=== PATIENT | male | born 1995 | race African-American/Black ===

== ENCOUNTER 2021-10-23 14:01 | Emergency (ER) | payer SELFPAY ==
[~2021-10-23] VITALS: Ht 175.3 cm; Wt 72.1 kg
[2021-10-23 14:01] VITALS: BP 106/78
[~2021-10-23 14:01] MED LIST: AMOX-263 PO; IBUP800T27 PO
[2021-10-23] MEDS ORDERED: LIDOCAINE 1%HCL (LOCAL ANESTH) 10 ML MDV ONE (15:35)
[2021-10-23] MEDS ORDERED: TETANUS-DIPTH-ACEL PERTUSSIS 0.5ML SYR Tdap IM ONE (15:45)
== END 2021-10-23 16:16 | disposition home or self-care (01) ==
LOC: ER 14:01
DX: S71.111A Laceration without foreign body, right thigh, initial encounter (principal); F17.210 Nicotine dependence, cigarettes, uncomplicated; Z79.1 Long term (current) use of non-steroidal anti-inflammatories (NSAID); Z79.2 Long term (current) use of antibiotics; W26.8XXA Contact with other sharp object(s), not elsewhere classified, initial encounter; Y93.89 Activity, other specified; Y92.89 Other specified places as the place of occurrence of the external cause; Y99.8 Other external cause status
CPT/HCPCS: 12004; 90471; 90715; 99283; J2001